=== PATIENT | male | born 1945 | race Caucasian/White ===

== ENCOUNTER 2016-08-25 06:55 | Day surgery (SDC) | payer MEDICARE ==
[~2016-08-25] VITALS: Ht 182.9 cm; Wt 85.3 kg
[2016-08-25] MEDS ORDERED: Propofol 10,000 mCg/mL 20 mL Inj ONE (06:56)
[2016-08-25] MEDS ORDERED: fentaNYL-PF 50 mCg/mL 2 mL Inj ONE (06:56)
[2016-08-25] MEDS: Lactated Ringer's 1,000 ML IV SCH ×3 (07:22→09:10)
[2016-08-25 07:28] VITALS: BP 123/79; PULSE 66; RESP 12; O2SAT 97
[2016-08-25] MEDS ORDERED: HYDROcodone-APAP 5-325 mg Tablet PO PRN (07:55)
[2016-08-25] MEDS ORDERED: Lactated Ringer's 500 ML IV PRN (08:47)
[2016-08-25] MEDS ORDERED: Lactated Ringer's 1,000 ML IV SCH (08:47)
[2016-08-25] MEDS ORDERED: HYDROmorphone 1 mg/mL Inj IVPUSH PRN (08:50)
[2016-08-25] MEDS ORDERED: Dexamethasone 4 mg/mL Inj IVPUSH PRN (08:50)
[2016-08-25] MEDS ORDERED: Ondansetron 2 mg/mL 2 mL Inj IVPUSH PRN (08:50)
[2016-08-25] MEDS ORDERED: fentaNYL-PF 50 mCg/mL 2 mL Inj IVPUSH PRN (08:50)
[2016-08-25] MEDS ORDERED: Labetalol 5 mg/mL 4 mL Inj IV PRN (08:50)
[2016-08-25] MEDS ORDERED: hydrALAZINE 20 mg/mL Inj IVPUSH PRN (08:50)
[2016-08-25] MEDS ORDERED: MetoCLOpramide 5 mg/mL 2 mL Inj IVPUSH PRN (08:50)
[2016-08-25] MEDS ORDERED: Atropine 0.4 mg/mL Inj IVPUSH PRN (08:50)
[2016-08-25] MEDS ORDERED: Phenylephrine 10,000 mCg/mL Inj IVPUSH PRN (08:50)
[2016-08-25] MEDS ORDERED: EPHEDrine Sulfate 50 mg/mL Inj IVPUSH PRN (08:50)
[2016-08-25] MEDS ORDERED: Lidocaine 1%-Epi 1:100,000 20 mL Inj INFILTRATE ONE (08:54)
[2016-08-25 09:10] VITALS: BP 118/79; PULSE 67; RESP 17; O2SAT 95
[2016-08-25 09:47] VITALS: BP 110/71; PULSE 95; RESP 17; O2SAT 96
--- NOTE | 2016-08-25 13:08 | PCM.ANEP1 ---
Post Anesthesia Phase 1 PACU Phase 1 Assessment Vital Signs Vital Signs Date Time Temp Pulse Resp B/P Pulse Ox O2 Delivery O2 Flow Rate FiO2 08/25/16 09:47 95 17 110/71 96 Room Air 08/25/16 09:10 36.4 67 17 118/79 95 Room Air 08/25/16 07:28 36.4 66 12 123/79 97 Room Air Anesthetic Administered: Other ([place] block) Level of Alertness: Awake, talking LOZADA's with Equal Strength: Yes Pain: No Nausea or Vomiting: No Oxygen Delivery: Room Air Lungs: Normal Air Movement Dermatome Level: Full Sensation Kiran Lopez MD Aug 25, 2016 13:08
--- NOTE | 2016-08-25 13:08 | PCM.HPANE ---
Patient Data Surgeon Admitting Provider: Attending Provider:Earle Solis DO Primary Care Physician:Scott Flores MD Other Provider:Ute Bynumingham Anesthesia Reason for Visit Right Carpal Tunnel Syndrome Ht/WT & BMI Height (Feet): 6 Height (Inches): 0 Weight (Kilograms): 87.18 Body Mass Index 26.00 Allergies Coded Allergies: No Known Allergies (Unverified , 08/24/16) Past Anesthesia History Anesthesia History: Denies:: Abnormal Airway, Anesthesia Reactions, Difficult Intubation, Fam Anesthesia Reaction, Fam Malignant Hypertherm, Malignant Hyperthermia Diabetes History Hx Diabetes?: No MRSA MRSA: No Medications Hypertension Medication: No Home Meds Incl Beta Stas: No Discontinued Reported Medications Tamsulosin (Flomax)0.4 Mg Capsule0.4 Mg PO DAILY 30 Days Ref 0 11/06/14 No Historical Medication Ea Ref 0 09/24/08 History HEENT History: Denies:: Abnormal Airway Cataracts (forming only) Difficult Intubation Dysphagia Glaucoma Hearing Problem Sinus Problem TMJ Hx of Heart Problems?: No Cardiovascular History: Denies:: AICD Edema Heart Murmur Hypertension Irregular Heartbeat Pacemaker Hx of Respiratory Problem?: No Respiratory History: Denies:: Asthma COPD Dyspnea Emphysema Oxygen Administration Pneumonia Tuberculosis Use of C-PAP Machine Use of Inhalers / NEBS Hx Neurologic Problems?: No Neurological History: Denies:: CVA Dementia Dizziness Headaches Multiple Sclerosis Parkinson's Disease Seizures TIA Hx of GI Problems?: No Gastrointestinal History: Denies:: Cirrhosis Gall Bladder Disease Gastroesphageal Reflux Gastrointestinal Bleeding Heartburn Hepatitis Hiatal Hernia Liver Disease Rectal Bleeding Hx of Problems?: No Genitourinary History: Denies:: Kidney Stones Urinary Tract Infection Male Hx: Positive for:: Prostate Problems (radical prostactectomy hx) Skin History: Denies:: History Skin Disorders? Pressure Ulcers Hx Musculoskeletal Problems?: Yes Musculoskeletal History: Positive for:: Back Injury (hx of lami - lumbar) Musculoskeletal Trauma (right carpal tunnel current admission problem) Osteoarthritis Denies:: Fibromyalgia Joint Replacement Myasthenia Gravis Systemic Lupus Hx of Psycho/Social Problems?: No Psycho Social History: Denies:: Anxiety Hx Depression Hx Surgeries?: Yes (radical prostate, lami, right shoulder, ) Hx Any Other Health Problems?: Yes Other History: Positive for:: Cancer (prostate) Denies:: Thyroid Disease History Blood Transfusions: Denies:: Accept Blood Products? Blood Transfusions Hx Diabetes: No Hx Alcohol Use: NoHx Substance Use: No Smoking Status: Never Smoker Have You Smoked inLast 12 mo: No Stop/Bang S-Snoring: Do You Snore Loudly: No T-Tired: feel tired, fatigued: No O-Obsered: Observed not breath: No P-Blood Pressure: treated: No B- Body Mass Index > 35 kg/m2: No A- Age over 50: Yes N- Neck Large Circumference: No G- Gender Male: Yes DELANEY Total Score: 2 Risk Assessment Category Category 1A: Patient has history of documented sleep apnea, and HAS NOT received any narcotic, sedative or anesthesia administration during this stay. Category 1B: Patient has history of documented sleep apnea, and HAS received any narcotic , sedative or anesthesia administration during this stay Category 2: Patient has SUSPECTED Obstructive Sleep Apnea, and HAS received any narcotic , sedative or anesthesia administration during this stay. Category 3: Patient has SUSPECTED Obstructive Sleep Apnea and HAS NOT received narcotic, sedative or anesthesia administration during this stay. Category 4: Outpatient in Procedural Areas with known sleep apnea or who screen positive for High Risk via the STOP/BANG questionnaire. Exam Exam General Appearance: Alert, Oriented X3, Cooperative, No Acute Distress HEENT/AIRWAY: MP 2, Neck Movement (FROM), Mouth Opening (3 FBMO) Lungs: Normal Air Movement Heart: Regular Rate/Rhythm Plan Impression Patient chart reviewed, patient interviewed and anesthestic plan with risks, benefits, and alternatives discussed, and informed consent obtained. NPO Status: > 8 hrs ASA Physical Status: ASA2 Mod Systemic Disease Anesthetic Plan: Other ([place] Block) Bene/Risks/Altern/Consents: Yes HP Complete Prior to Induction: Yes Kiran Lopez MD Aug 25, 2016 07:01
--- NOTE | 2016-08-25 13:09 | PCM.ANEP2 ---
Post Anesthesia Evaluation ASA/CMS Post Anesthesia VS in Patient's Normal Range?: Yes Resp Stable; Airway Patent?: Yes CV Function & Hydration Stable: Yes Mental Status Recovered?: Yes Pain control Satisfactory?: Yes N/V Control Satisfactory?: Yes Kiran Lopez MD Aug 25, 2016 13:09
--- NOTE | 2016-08-25 20:53 | OP ---
[address] [address] OPERATIVE REPORT PATIENT: BIGG BRUNO : 1945 MR#: [id number] ADMIT: 08/25/2016 JOB ID: [id number] DATE OF SURGERY: 08/25/2016 PREOPERATIVE DIAGNOSIS(ES): Right carpal tunnel syndrome. POSTOPERATIVE DIAGNOSIS(ES): Right carpal tunnel syndrome. PROCEDURE PERFORMED: Right open carpal tunnel release. SURGEON: Earle Solis DO ANESTHESIA: [place] block. HISTORY OF PRESENT ILLNESS: The patient is a pleasant 71-year-old male with a longstanding history of right hand pain and paresthesias. He was diagnosed with carpal tunnel syndrome but failed nighttime bracing. He had a significant finding on electrodiagnostic testing and opted to proceed with a right open carpal tunnel release. He understood the risks include, but are not limited to, neurovascular injury, tendon injury, infection, failure to resolve the patient of his preoperative symptoms, stiffness, and persistent pain, all of which may require further intervention. The patient had all questions answered. Consent was signed and placed in the chart. PROCEDURE IN DETAIL: The patient was brought to the operative suite and placed supine on the operating room table. Surgical time-out was performed. Everyone in the room was in agreement. After appropriate anesthesia was obtained, the right upper extremity prepped and draped in sterile fashion. A 2 cm longitudinal incision was made in line with the radial aspect of the ring finger and ulnar aspect of the palmaris longus. The incision was kept distal to the wrist crease and proximal to Lopez cardinal line. Subcutaneous tissues were dissected and bipolar electrocautery utilized to maintain hemostasis throughout the procedure. The palmar fascia was first identified and incised longitudinally in line with the skin incision, followed by exposure of the underlying transverse carpal ligament. The transverse carpal ligament was then released in its entirety to include the distal extent of the antebrachial fascia. Copious irrigation was performed, followed by closure of the skin with 5-0 nylon in simple interrupted fashion. The patient was then placed in a bulky soft dressing. ESTIMATED BLOOD LOSS: 1 mL. COMPLICATIONS: None. DISPOSITION: The patient tolerated the procedure well. Anesthesia was reversed. The patient was transferred back to the PACU for recovery. POSTOPERATIVE PLAN: The patient follow up in the office in two weeks. We will remove the patient's sutures at that time and have him start working on range of motion and scar mobilization.
== END 2016-08-25 23:59 | disposition home or self-care (01) ==
LOC: SAS 06:55
PROVIDERS: ATTEND Orthopaedic Surgery
DX: G56.01 Carpal tunnel syndrome, right upper limb (principal); N40.0 Benign prostatic hyperplasia without lower urinary tract symptoms
CPT/HCPCS: 64721; J7120

== ENCOUNTER 2016-09-01 05:39 | Day surgery (SDC) | payer MEDICARE ==
[2016-09-01] VITALS (8 sets, daily range): BP systolic 118–135; BP diastolic 65–80; PULSE 68–82; RESP 13–16; O2SAT 93–99
[~2016-09-01] VITALS: Ht 182.9 cm; Wt 86.9 kg
[2016-09-01] MEDS ORDERED: Ondansetron 2 mg/mL 2 mL Inj ONE (05:40)
[2016-09-01] MEDS ORDERED: EPHEDrine/NS 5 mg/mL 5 mL Syringe ONE (05:40)
[2016-09-01] MEDS ORDERED: Propofol 10,000 mCg/mL 20 mL Inj ONE (05:40)
[2016-09-01] MEDS ORDERED: fentaNYL-PF 50 mCg/mL 2 mL Inj ONE (05:40)
[2016-09-01] MEDS ORDERED: Lidocaine PF 1% 30 mL Inj ONE (05:40)
[2016-09-01] MEDS ORDERED: Phenylephrine/NS 100 mCg/mL 10 mL Syringe IVPUSH ONE (05:40)
[2016-09-01] MEDS ORDERED: CeFAZolin 2 Gm/50 mL D5W IV Premix IV ONE (06:00)
[2016-09-01] MEDS: Lactated Ringer's 1,000 ML IV SCH ×3 (06:14→08:49)
[2016-09-01] MEDS ORDERED: Lactated Ringer's 500 ML IV PRN (07:11)
[2016-09-01] MEDS ORDERED: Lactated Ringer's 1,000 ML IV SCH (07:11)
--- NOTE | 2016-09-01 07:11 | PCM.HPANE ---
Patient Data Date of Service: Sep 01, 2016 Surgeon Admitting Provider: Attending Provider:Tomás Monroe MD Primary Care Physician:Scott Flores MD Other Provider:Kathryn Bynum Anesthesia Reason for Visit Right Inguinal Hernia Ht/WT & BMI Height (Feet): 6 Height (Inches): 0 Weight (Kilograms): 86.9 Body Mass Index 25.00 Allergies Coded Allergies: No Known Allergies (Unverified , 08/30/16) Past Anesthesia History Anesthesia History: Denies:: Abnormal Airway, Anesthesia Reactions, Difficult Intubation, Fam Anesthesia Reaction, Fam Malignant Hypertherm, Malignant Hyperthermia Diabetes History Hx Diabetes?: No MRSA MRSA: No Medications Hypertension Medication: No Home Meds Incl Beta Stas: No No Active Prescriptions or Reported Meds History History of ENT Problems?: Yes HEENT History: Positive for:: Sinus Problem (HX SINUSITIS) Denies:: Abnormal Airway Cataracts (forming only) Difficult Intubation Dysphagia Hearing Problem TMJ Hx of Heart Problems?: Yes Cardiovascular History: Denies:: AICD Edema Heart Murmur Hypertension (HYPERLIPIDEMIA) Irregular Heartbeat Pacemaker Hx of Respiratory Problem?: Yes Respiratory History: Denies:: Asthma COPD Dyspnea Emphysema Oxygen Administration Pneumonia Tuberculosis Use of C-PAP Machine (SNORES) Hx Neurologic Problems?: No Neurological History: Denies:: CVA Dementia Dizziness Headaches Multiple Sclerosis Parkinson's Disease Seizures Hx of GI Problems?: Yes Gastrointestinal History: Denies:: Cirrhosis Gastroesphageal Reflux Gastrointestinal Bleeding Heartburn Hepatitis Hiatal Hernia Rectal Bleeding (HX COLON POLYPS) Other GI Pertinent History: S/P LT INGUINAL HERNIA RPR RT INGUINAL HERNIA (WEARING TRUSS)=CURRENT PROBLEM C/OF ABD PAIN Hx of Problems?: No Genitourinary History: Denies:: Kidney Stones Urinary Tract Infection Male Hx: Positive for:: Prostate Problems (S/P RADICAL PROSTATECTOMY FOR CA) Scrotal Mass (S/P RT HYDROCELECTOMY) Skin History: Denies:: History Skin Disorders? Pressure Ulcers Hx Musculoskeletal Problems?: Yes Musculoskeletal History: Positive for:: Back Injury (C/OF SCIATICA) Musculoskeletal Trauma (S/P RT SHOULDER RPR.RT CTR) Denies:: Joint Replacement Systemic Lupus Hx of Psycho/Social Problems?: No Psycho Social History: Denies:: Anxiety Hx Depression Hx Surgeries?: Yes (radical prostate, lami, right shoulder, RT HYDROCELECTOMY, LT INGUINAL HERNI) Hx Any Other Health Problems?: Yes Other History: Positive for:: Cancer (prostate) Denies:: Endocrine Disease Hospitalization Thyroid Disease History Blood Transfusions: Denies:: Accept Blood Products? Blood Transfusions (EPISCOPAL) Hx Diabetes: No Hx Alcohol Use: NoHx Substance Use: No Smoking Status: Never Smoker Have You Smoked inLast 12 mo: No Stop/Bang S-Snoring: Do You Snore Loudly: Yes T-Tired: feel tired, fatigued: No O-Obsered: Observed not breath: No P-Blood Pressure: treated: No B- Body Mass Index > 35 kg/m2: No A- Age over 50: Yes N- Neck Large Circumference: No G- Gender Male: Yes DELANEY Total Score: 3 DELANEY Risk Assessment: High Risk, =/>3 Yes DELANEY Category 4 OutPt Procedure: Yes Risk Assessment Category Category 1A: Patient has history of documented sleep apnea, and HAS NOT received any narcotic, sedative or anesthesia administration during this stay. Category 1B: Patient has history of documented sleep apnea, and HAS received any narcotic , sedative or anesthesia administration during this stay Category 2: Patient has SUSPECTED Obstructive Sleep Apnea, and HAS received any narcotic , sedative or anesthesia administration during this stay. Category 3: Patient has SUSPECTED Obstructive Sleep Apnea and HAS NOT received narcotic, sedative or anesthesia administration during this stay. Category 4: Outpatient in Procedural Areas with known sleep apnea or who screen positive for High Risk via the STOP/BANG questionnaire. Exam Exam Vital Signs Vital Signs Date Time Temp Pulse Resp B/P Pulse Ox O2 Delivery O2 Flow Rate FiO2 09/01/16 06:00 36.3 69 16 125/80 98 Room Air General Appearance: Alert, Oriented X3, Cooperative HEENT/AIRWAY: MP 2, Neck Movement Lungs: Clear to Auscultation Heart: Regular Rate/Rhythm, Normal S1, Normal S2 Meds/Labs/Diagnostics Admission Meds Current Medications Lactated Ringer's (Lr) 1,000 ml @ 120 mls/hr [id number] IV Last administered on t 06:14; Start 09/01/16 at 05:00; Stop 09/01/16 at 13:19 Plan Impression Patient chart reviewed, patient interviewed and anesthestic plan with risks, benefits, and alternatives discussed, and informed consent obtained. NPO Status: [place] ASA Physical Status: ASA2 Mod Systemic Disease Anesthetic Plan: GA Bene/Risks/Altern/Consents: Yes HP Complete Prior to Induction: Yes Pancho Sarabia MD Sep 01, 2016 06:54
[2016-09-01] MEDS ORDERED: HYDROmorphone 1 mg/mL Inj IVPUSH PRN (07:15)
[2016-09-01] MEDS ORDERED: Ondansetron 2 mg/mL 2 mL Inj IVPUSH PRN (07:15)
[2016-09-01] MEDS ORDERED: Dexamethasone 4 mg/mL Inj IVPUSH PRN (07:15)
[2016-09-01] MEDS ORDERED: fentaNYL-PF 50 mCg/mL 2 mL Inj IVPUSH PRN (07:15)
[2016-09-01] MEDS ORDERED: Labetalol 5 mg/mL 4 mL Inj IV PRN (07:15)
[2016-09-01] MEDS ORDERED: Phenylephrine 10,000 mCg/mL Inj IVPUSH PRN (07:15)
[2016-09-01] MEDS ORDERED: hydrALAZINE 20 mg/mL Inj IVPUSH PRN (07:15)
[2016-09-01] MEDS ORDERED: MetoCLOpramide 5 mg/mL 2 mL Inj IVPUSH PRN (07:15)
[2016-09-01] MEDS ORDERED: EPHEDrine Sulfate 50 mg/mL Inj IVPUSH PRN (07:15)
[2016-09-01] MEDS ORDERED: Atropine 0.4 mg/mL Inj IVPUSH PRN (07:15)
[2016-09-01] MEDS ORDERED: Bupivacaine-MPF 0.5% 30 mL Inj INFILTRATE ONE (07:55)
--- NOTE | 2016-09-01 09:13 | OP ---
[address] [address] OPERATIVE REPORT PATIENT: BIGG BRUNO : 1945 MR#: [id number] ADMIT: 09/01/2016 JOB ID: [id number] DATE OF SURGERY: 09/01/2016 ANESTHESIA: General. PREOPERATIVE DIAGNOSIS(ES): Symptomatic right inguinal hernia. POSTOPERATIVE DIAGNOSIS(ES): Symptomatic right inguinal hernia (indirect). OPERATION: Repair of right inguinal hernia with mesh. SURGEON: Tomás Monroe MD. DOMINATRIX: Simon Molina PA-C (the help desk assistant was required for the safe and timely completion of the case) as well as JOSLYN Giordano. COMPLICATIONS: None. ESTIMATED BLOOD LOSS: Minimal. CONDITION: Satisfactory. SPECIMEN: None. FINDINGS: There was a moderately sized indirect hernia. There was also a large cord lipoma. The hernia was repaired with a piece of soft mesh. INDICATIONS/SIGNIFICANT HISTORY: The patient is a 71-year-old man who noted some right groin discomfort in January or February while hiking. He subsequently developed a bulge which has increased in size. He was eventually referred [place] and he elected to undergo repair of an inguinal hernia. OPERATIVE TECHNIQUE: The patient was taken to the operating room and placed in supine position. General anesthesia was administered and preoperative antibiotics were given. The groin was prepped and draped in standard surgical fashion and a procedure pause performed. A right inguinal incision was made. Dissection carried down through skin and subcutaneous tissue. The aponeurosis of the external oblique was opened in line with the fibers to open up the external ring. The cord was circumferentially dissected free. The floor appeared intact. The cord was investigated and a moderate sized hernia sac was encountered and opened. This was dissected free and then high ligated with a 3-0 Vicryl suture. There was also a large cord lipoma, which was freed from the cord and then reduced back into the abdomen. Then a piece of Bard soft mesh was trimmed to appropriate size and then secured in place using interrupted 2-0 PDS sutures. This resulted in nice reinforcement of the floor and a nice re-creation of the internal ring. The aponeurosis of the external oblique was then closed using a running 3-0 Vicryl. Local anesthetic was injected. The Virgil's was closed with interrupted 3-0 Vicryl, followed by running 4-0 Monocryl for the skin. The entire procedure was well tolerated without complication.
[2016-09-01] MEDS ORDERED: oxyCODONE-Acetamin 5-325 mg Tablet PO PRN (09:45)
--- NOTE | 2016-09-01 09:50 | PCM.ANEP1 ---
Post Anesthesia Phase 1 PACU Phase 1 Assessment Date of Service: Sep 01, 2016 Vital Signs Vital Signs Date Time Temp Pulse Resp B/P Pulse Ox O2 Delivery O2 Flow Rate FiO2 09/01/16 09:14 36.6 68 14 119/71 96 Room Air 09/01/16 09:10 36.6 69 14 118/73 93 Room Air 09/01/16 08:55 36.4 75 16 121/65 94 Room Air 09/01/16 08:50 76 13 119/66 98 Simple Mask 7 09/01/16 08:45 82 13 127/71 99 Simple Mask 7 09/01/16 08:42 36.3 135/66 09/01/16 06:00 36.3 69 16 125/80 98 Room Air Anesthetic Administered: GA Level of Alertness: Sleepy, easy to arouse LOZADA's with Equal Strength: Yes Pain: No Nausea or Vomiting: No Oxygen Delivery: Simple Mask Lungs: Normal Air Movement Pancho Sarabia MD Sep 01, 2016 09:50
--- NOTE | 2016-09-01 10:48 | PCM.ANEP2 ---
Post Anesthesia Evaluation ASA/CMS Post Anesthesia Date of Service: Sep 01, 2016 VS in Patient's Normal Range?: Yes Resp Stable; Airway Patent?: Yes CV Function & Hydration Stable: Yes Mental Status Recovered?: Yes Pain control Satisfactory?: Yes N/V Control Satisfactory?: Yes Pancho Sarabia MD Sep 01, 2016 10:48
== END 2016-09-01 23:59 | disposition home or self-care (01) ==
LOC: SAS 05:39
PROVIDERS: ATTEND General Practice
DX: K40.90 Unilateral inguinal hernia, without obstruction or gangrene, not specified as recurrent (principal); D17.6 Benign lipomatous neoplasm of spermatic cord
CPT/HCPCS: 49505; 55520; C1781; J0690; J2370; J2405; J7120